=== PATIENT | male | born 1950 | race Caucasian/White ===

== ENCOUNTER 2017-06-07 14:02 | Observation (INO) ==
[2017-06-07] MEDS ORDERED: Ondansetron 4 MG/2 ML VIAL IVP ONE (14:13)
--- NOTE | 2017-06-07 14:17 | Emergency Department Note ---
Disposition Clinical Impression: Dizziness, Unable to ambulate, Nausea, Elevated serum creatinine Proteinuria Qualifiers: Proteinuria type: other Qualified Code(s): R80.8 - Other proteinuria Disposition: Admitted As Inpatient Condition: Good Referrals: NONE,PCP [Primary Care Provider] - Maverick Rosas [Family Provider] - Forms: ED Satisfaction Letter Time of Disposition: 17:47 General Adult HPI - General Time Seen by Provider: 06/07/17 14:09 Source: patient, EMS Limitations: no limitations Nursing Notes Reviewed: Yes Vital Signs Reviewed: Yes - History of Present Illness HPI Narrative: Mr. Grajeda is a very pleasant 66-year-old male with a past ocular history of hypertension, hyperlipidemia, type 2 diabetes, obesity and coronary artery disease who presents to the [facility] emergency department with chief complaint of nausea vomiting. He reports this complaint and present for roughly 2 days and has associated lightheadedness. Prior to the squad call is into the bathroom and felt profoundly weak and lightheaded and sat down on the floor. He is unable to rise at that time. Squad was called and brought into the emergency room for further evaluation. Patient is denying any active chest pain at this time. He did experience some diaphoresis in the bathroom prior to arrival. He denies any palpitations or shortness of breath. He denies any recent sick contacts, fevers, abdominal pain or worsening lower extremity edema. Patient has a history of triple artery bypass back in 2013. No other complaint at this time. Pain Scale: 8 - Related Data Allergies Allergy/AdvReac Type Severity Reaction Status Date / Time No Known Allergies Allergy Verified 06/07/17 14:16 Review of Systems: As Per HPI Past Medical History - Past Medical History Medical history: Reports: diabetes Psychiatric history: Reports: no psych history - Social History Smoking Status: Never smoker Alcohol use: Reports: none Drug use: Reports: none Physical Exam CONSTITUTIONAL: Alert and oriented X3 in no apparent distress HEAD: Normocephalic; atraumatic. EYES: Ocular movements grossly intact Oropharynx: pink/moist, vomit present RESP: NRD without use of accessory musculature, CTA b/l with no wheezes/rales/ rhonchi CARD: Regular rhythm, loud RADHA ABD: grossly normal, soft, non-tender, no guarding/distention/rigidity SKIN: normal appearance, no pallor/diaphoresis,mottling,jaundice,cyanosis EXT: DP/Rad pulses 2+ and symmetrical; no lateralizing edema; no other lesions seen PSYCH: appropriate mood/affect - General Limitations: no limitations General appearance: alert Course Course Narrative: Patient was seen and examined at bedside. Vital signs reviewed and were unremarkable. Blood pressure stable and heart rate in the 90s. Paitent arrived with IVF going. Physical examination demonstrates a comfortable individual lying in bed in no acute distress. There is no reproducible chest pain. Abdominal exam was benign. Patient is only reporting mild nausea at this time. No active chest pain. EKG was performed and revealed and showed evidence of possible lateral ischemia. 12-lead EKG was performed immediately demonstrated ST depression in leads 1, aVL, V3, V4, V5 and V6. This EKG was compared to previous that was performed on 09/17/2012 that shows similar findings but slightly worse depression in leads V3 and V4. We will begin workup with troponin, CBC, BMP, coags, BNP, chest x-ray. IV access was obtained and reviewed by EMS was started on IV fluids. IV Zofran will be administered. Leads were placed posteriorly and did not demonstrate any ST elevation in the lateral leads. Disposition pending. 1715: CBC unremarkable. BMP shows elevated creatinine at 1.44. There is no previous for comparison. Coags are unremarkable. Chest x-ray shows no acute process. Patient's nausea and vomiting completely resolved. Patient continued to deny any chest pain. He did continue to complain of slight dizziness. Patient was able to tolerate by mouth intake but patient did not do well with ambulation. Patient was immediately dizzy upon 1-2 steps and needed assistance back to the bed. Head CT was ordered and showed no acute process. Recommend patient be admitted for observation due to continued dizziness and inability to ambulate. In addition there is proteinuria the presence of elevated creatinine on his urinalysis no need further evaluation. Hospitalist will be paged. 1745: Spoke with hospitalist, Dr. Haider, who is a patient for admission. No further recommendations per hospital team. Vital Signs Temperature 100.1 F H 06/07/17 14:06 Pulse Rate 88 06/07/17 14:06 Respiratory Rate 18 06/07/17 14:06 Blood Pressure 146/66 06/07/17 14:06 O2 Sat by Pulse Oximetry 93 06/07/17 14:06 Temperature 100.1 F H 06/07/17 14:06 Pulse Rate 90 06/07/17 15:14 Respiratory Rate 16 06/07/17 15:14 Blood Pressure 147/72 06/07/17 15:14 O2 Sat by Pulse Oximetry 95 06/07/17 15:14 Oxygen Delivery Oxygen Delivery Room Air Medical Decision Making - Medical Records Medical records reviewed: Yes I reviewed the patient's medical records. - Lab Data Lab results reviewed: Yes I reviewed the patient's lab results. Result diagrams: 06/07/17 14:32 06/07/17 14:32 Lab Results 06/07/17 06/07/17 06/07/17 Range/Units 14:32 14:32 14:32 WBC (4.3-11.1) K/mcL RBC (4.19-5.50) M/mcL Hgb (12.9-16.9) g/dL Hct (37.5-50.1) % MCV (83.0-100.0) fL MCH (28.0-33.3) pg MCHC (31.6-35.5) g/dL RDW (11.5-14.5) % Plt Count (140-400) K/mcL MPV (9.4-12.4) fL Immature Gran % (0-4) % Seg Neutrophils % % Lymphocytes % % Monocytes % % Eosinophils % % Basophils % % Neutrophils # (1.6-8.9) K/mcL Lymphocytes # (0.6-4.6) K/mcL Monocytes # (0.0-1.3) K/mcL Eosinophils # (0.0-0.6) K/mcL Basophils # (0.0-0.2) K/mcL PT 13.9 H (9.4-12.1) Seconds INR 1.3 APTT 28.3 (26.0-36.0) Seconds Sodium (136-145) mEq/L Potassium (3.5-5.1) mEq/L Chloride (98-107) mEq/L Carbon Dioxide (23-29) mEq/L BUN (8-23) mg/dL Creatinine (0.70-1.30) mg/dL Est GFR ( Amer) (> 60) Est GFR (Non-Af Amer) (> 60) BUN/Creatinine Ratio (6-26) Glucose (70-105) mg/dL Calculated Osmolality (280-300) Calcium (8.6-10.3) mg/dL Troponin I (< 0.04) ng/mL B-Natriuretic Peptide 78 (Less than 100) pg/mL Lipase 20 (11-82) Units/L Urine Color (Yellow) Urine Clarity (Clear) Urine pH (5.0-8.0) pH Units Ur Specific [place] (1.010-1.025) Urine Protein (Neg-Trace) mg/dL Urine Glucose (UA) (Normal) mg/dL Urine Ketones (Negative) mg/dL Urine Blood (Negative) Urine Nitrite (Negative) Urine Bilirubin (Negative) Urine Urobilinogen (Normal) mg/dL Ur Leukocyte Esterase (Negative) Urine Microscopic RBC (0-3) per hpf Urine Microscopic WBC (0-3) per hpf Ur Squamous Epith Cells (None-Few) per lpf Urine Bacteria (None-Few) per hpf Hyaline Casts (None-Few) per lpf Ur Culture Indicated? (NO) 06/07/17 06/07/17 06/07/17 Range/Units 14:32 14:32 16:42 WBC 10.8 (4.3-11.1) K/mcL RBC 5.32 (4.19-5.50) M/mcL Hgb 14.4 (12.9-16.9) g/dL Hct 41.5 (37.5-50.1) % MCV 78.0 L (83.0-100.0) fL MCH 27.1 L (28.0-33.3) pg MCHC 34.7 (31.6-35.5) g/dL RDW 15.8 H (11.5-14.5) % Plt Count 137 L (140-400) K/mcL MPV 10.3 (9.4-12.4) fL Immature Gran % 0.5 (0-4) % Seg Neutrophils % 92.1 % Lymphocytes % 3.8 % Monocytes % 3.3 % Eosinophils % 0.1 % Basophils % 0.2 % Neutrophils # 9.9 H (1.6-8.9) K/mcL Lymphocytes # 0.4 L (0.6-4.6) K/mcL Monocytes # 0.4 (0.0-1.3) K/mcL Eosinophils # 0.0 (0.0-0.6) K/mcL Basophils # 0.0 (0.0-0.2) K/mcL PT (9.4-12.1) Seconds INR APTT (26.0-36.0) Seconds Sodium 135 L (136-145) mEq/L Potassium 4.0 (3.5-5.1) mEq/L Chloride 102 (98-107) mEq/L Carbon Dioxide 23 (23-29) mEq/L BUN 24 H (8-23) mg/dL Creatinine 1.44 H (0.70-1.30) mg/dL Est GFR ( Amer) 60 (> 60) Est GFR (Non-Af Amer) 49 L (> 60) BUN/Creatinine Ratio 17 (6-26) Glucose 247 H (70-105) mg/dL Calculated Osmolality 292 (280-300) Calcium 9.0 (8.6-10.3) mg/dL Troponin I 0.03 (< 0.04) ng/mL B-Natriuretic Peptide (Less than 100) pg/mL Lipase (11-82) Units/L Urine Color Dark Yellow (Yellow) Urine Clarity Clear (Clear) Urine pH 5.5 (5.0-8.0) pH Units Ur Specific [place] 1.026 H (1.010-1.025) Urine Protein >=300 H (Neg-Trace) mg/dL Urine Glucose (UA) 250 H (Normal) mg/dL Urine Ketones Trace H (Negative) mg/dL Urine Blood Trace H (Negative) Urine Nitrite Negative (Negative) Urine Bilirubin Small H (Negative) Urine Urobilinogen Normal (Normal) mg/dL Ur Leukocyte Esterase Negative (Negative) Urine Microscopic RBC 5-15 H (0-3) per hpf Urine Microscopic WBC 5-15 H (0-3) per hpf Ur Squamous Epith Cells Many H (None-Few) per lpf Urine Bacteria None Seen (None-Few) per hpf Hyaline Casts None Seen (None-Few) per lpf Ur Culture Indicated? NO (NO) - Radiology Data Radiology results reviewed: Yes I reviewed the patient's radiology results. Chest X-Ray 06/07/17 14:09 IMPRESSION: No evidence of acute cardiopulmonary disease. D/ / Khadar Miles MD / Khadar Miles MD Interpreting Provider: Khadar Miles MD Head CT 06/07/17 16:21 IMPRESSION: No acute intracranial abnormality. D/ / Ethan Bolivar MD / Ethan Bolivar MD Interpreting Provider: Ethan Bolivar MD - EKG Data EKG #1 EKG attestation: Yes I reviewed and interpreted this EKG. EKG results narrative: 06/07/17 1407 Heart rate 97, AR 128, QRS 74, QTC 411 consistent with normal sinus rhythm. There is ST depression in leads 1, AVL, V3, V4, V5, V6. These lines were compared to previous that was performed on 09/17/2012 that shows more progressive depression in leads V3 and V4. EKG #2 EKG attestation: Yes I reviewed and interpreted this EKG. EKG results narrative: 06/07/17 1507: Heart rate 90, AR 140, QRS 84, QTC 376 consistent with normal sinus rhythm. Patient had leads V3, V4, V5 and V6 place as posterior leads. There is no obvious ST or T-wave abnormalities. This EKG was compared to previous that was performed today at 1407.
[2017-06-07 14:45] LABS: Basophils % 0.2 %; Eosinophils % 0.1 %; Hematocrit 41.5 % (37.5-50.1); Hemoglobin 14.4 g/dL (12.9-16.9); Immature Granulocytes % 0.5 % (0-4); Lymphocytes # 0.4 K/mcL (0.6-4.6); Lymphocytes % 3.8 %; Mean Corpuscular HGB Conc 34.7 g/dL (31.6-35.5); Mean Corpuscular Hemoglobin 27.1 pg (28.0-33.3); Mean Platelet Volume 10.3 fL (9.4-12.4); Monocytes # 0.4 K/mcL (0.0-1.3); Monocytes % 3.3 %; Neutrophils # 9.9 K/mcL (1.6-8.9); Platelet Count 137 K/mcL (140-400); Red Blood Count 5.32 M/mcL (4.19-5.50); Red Cell Distribution Width 15.8 % (11.5-14.5); Segmented Neutrophils % 92.1 %
[2017-06-07 14:52] LABS: INR 1.3; Prothrombin Time 13.9 Seconds (9.4-12.1)
[2017-06-07 14:55] LABS: Activated Partial Thrombo Time 28.3 Seconds (26.0-36.0)
[2017-06-07 15:09] LABS: Troponin I 0.03 ng/mL (< 0.04)
[2017-06-07] MEDS ORDERED: 0.9 % Sodium Chloride 1,000 ML IVC ONE ×2 (15:15→16:23)
--- NOTE | 2017-06-07 16:21 | Emergency Department Note ---
Disposition Clinical Impression: Dizziness, Unable to ambulate, Nausea, Elevated serum creatinine, Proteinuria Disposition: Admitted As Inpatient Condition: Good General Adult HPI - General Chief complaint: ED Nausea/Vomiting/Diarrhea Stated complaint: NV/weakness Time Seen by Provider: 06/07/17 14:09 Source: patient, EMS Limitations: no limitations - History of Present Illness Pain Scale: 8 - Related Data Home Medications Medication Instructions Recorded Confirmed Amlodipine Besylate 10 mg PO DAILY 06/07/17 06/07/17 Clopidogrel [Plavix] 75 mg PO DAILY 06/07/17 06/07/17 Escitalopram [Lexapro] 20 mg PO DAILY 06/07/17 06/07/17 Hydrochlorothiazide [Microzide] 12.5 mg PO QAM 06/07/17 06/07/17 Insulin DETEMIR [Levemir] 56 unit SQ QPM 06/07/17 06/07/17 Isosorbide MONOnitrate (24 HR) 60 mg PO DAILY 06/07/17 06/07/17 [Imdur] Lisinopril [Zestril] 20 mg PO BID 06/07/17 06/07/17 Metoprolol [Lopressor] 12.5 mg PO BID 06/07/17 06/07/17 Montelukast [Singulair] 10 mg PO DAILY 06/07/17 06/07/17 Nitroglycerin [Nitrostat] 0.4 mg SL Q5M PRN 06/07/17 06/07/17 Rosuvastatin [Crestor] 20 mg PO HS 06/07/17 06/07/17 Allergies Allergy/AdvReac Type Severity Reaction Status Date / Time No Known Allergies Allergy Verified 06/07/17 14:16 Past Medical History - Past Medical History Medical history: Reports: diabetes Psychiatric history: Reports: no psych history - Social History Smoking Status: Never smoker Alcohol use: Reports: none Drug use: Reports: none Physical Exam - General Limitations: no limitations General appearance: alert Course Vital Signs Temperature 100.1 F H 06/07/17 14:06 Pulse Rate 88 06/07/17 14:06 Respiratory Rate 18 06/07/17 14:06 Blood Pressure 146/66 06/07/17 14:06 O2 Sat by Pulse Oximetry 93 06/07/17 14:06 Temperature 99.7 F H 06/07/17 18:35 Pulse Rate 92 06/07/17 17:51 Respiratory Rate 16 06/07/17 17:51 Blood Pressure 144/79 06/07/17 17:51 O2 Sat by Pulse Oximetry 97 06/07/17 17:51 Oxygen Delivery Oxygen Delivery Room Air Medical Decision Making - Lab Data Result diagrams: 06/07/17 14:32 06/07/17 14:32 Lab Results 06/07/17 06/07/17 06/07/17 Range/Units 14:32 14:32 14:32 WBC (4.3-11.1) K/mcL RBC (4.19-5.50) M/mcL Hgb (12.9-16.9) g/dL Hct (37.5-50.1) % MCV (83.0-100.0) fL MCH (28.0-33.3) pg MCHC (31.6-35.5) g/dL RDW (11.5-14.5) % Plt Count (140-400) K/mcL MPV (9.4-12.4) fL Immature Gran % (0-4) % Seg Neutrophils % % Lymphocytes % % Monocytes % % Eosinophils % % Basophils % % Neutrophils # (1.6-8.9) K/mcL Lymphocytes # (0.6-4.6) K/mcL Monocytes # (0.0-1.3) K/mcL Eosinophils # (0.0-0.6) K/mcL Basophils # (0.0-0.2) K/mcL PT 13.9 H (9.4-12.1) Seconds INR 1.3 APTT 28.3 (26.0-36.0) Seconds Sodium (136-145) mEq/L Potassium (3.5-5.1) mEq/L Chloride (98-107) mEq/L Carbon Dioxide (23-29) mEq/L BUN (8-23) mg/dL Creatinine (0.70-1.30) mg/dL Est GFR ( Amer) (> 60) Est GFR (Non-Af Amer) (> 60) BUN/Creatinine Ratio (6-26) Glucose (70-105) mg/dL Calculated Osmolality (280-300) Calcium (8.6-10.3) mg/dL Troponin I (< 0.04) ng/mL B-Natriuretic Peptide 78 (Less than 100) pg/mL Lipase 20 (11-82) Units/L Urine Color (Yellow) Urine Clarity (Clear) Urine pH (5.0-8.0) pH Units Ur Specific [place] (1.010-1.025) Urine Protein (Neg-Trace) mg/dL Urine Glucose (UA) (Normal) mg/dL Urine Ketones (Negative) mg/dL Urine Blood (Negative) Urine Nitrite (Negative) Urine Bilirubin (Negative) Urine Urobilinogen (Normal) mg/dL Ur Leukocyte Esterase (Negative) Urine Microscopic RBC (0-3) per hpf Urine Microscopic WBC (0-3) per hpf Ur Squamous Epith Cells (None-Few) per lpf Urine Bacteria (None-Few) per hpf Hyaline Casts (None-Few) per lpf Ur Culture Indicated? (NO) 06/07/17 06/07/17 06/07/17 Range/Units 14:32 14:32 16:42 WBC 10.8 (4.3-11.1) K/mcL RBC 5.32 (4.19-5.50) M/mcL Hgb 14.4 (12.9-16.9) g/dL Hct 41.5 (37.5-50.1) % MCV 78.0 L (83.0-100.0) fL MCH 27.1 L (28.0-33.3) pg MCHC 34.7 (31.6-35.5) g/dL RDW 15.8 H (11.5-14.5) % Plt Count 137 L (140-400) K/mcL MPV 10.3 (9.4-12.4) fL Immature Gran % 0.5 (0-4) % Seg Neutrophils % 92.1 % Lymphocytes % 3.8 % Monocytes % 3.3 % Eosinophils % 0.1 % Basophils % 0.2 % Neutrophils # 9.9 H (1.6-8.9) K/mcL Lymphocytes # 0.4 L (0.6-4.6) K/mcL Monocytes # 0.4 (0.0-1.3) K/mcL Eosinophils # 0.0 (0.0-0.6) K/mcL Basophils # 0.0 (0.0-0.2) K/mcL PT (9.4-12.1) Seconds INR APTT (26.0-36.0) Seconds Sodium 135 L (136-145) mEq/L Potassium 4.0 (3.5-5.1) mEq/L Chloride 102 (98-107) mEq/L Carbon Dioxide 23 (23-29) mEq/L BUN 24 H (8-23) mg/dL Creatinine 1.44 H (0.70-1.30) mg/dL Est GFR ( Amer) 60 (> 60) Est GFR (Non-Af Amer) 49 L (> 60) BUN/Creatinine Ratio 17 (6-26) Glucose 247 H (70-105) mg/dL Calculated Osmolality 292 (280-300) Calcium 9.0 (8.6-10.3) mg/dL Troponin I 0.03 (< 0.04) ng/mL B-Natriuretic Peptide (Less than 100) pg/mL Lipase (11-82) Units/L Urine Color Dark Yellow (Yellow) Urine Clarity Clear (Clear) Urine pH 5.5 (5.0-8.0) pH Units Ur Specific [place] 1.026 H (1.010-1.025) Urine Protein >=300 H (Neg-Trace) mg/dL Urine Glucose (UA) 250 H (Normal) mg/dL Urine Ketones Trace H (Negative) mg/dL Urine Blood Trace H (Negative) Urine Nitrite Negative (Negative) Urine Bilirubin Small H (Negative) Urine Urobilinogen Normal (Normal) mg/dL Ur Leukocyte Esterase Negative (Negative) Urine Microscopic RBC 5-15 H (0-3) per hpf Urine Microscopic WBC 5-15 H (0-3) per hpf Ur Squamous Epith Cells Many H (None-Few) per lpf Urine Bacteria None Seen (None-Few) per hpf Hyaline Casts None Seen (None-Few) per lpf Ur Culture Indicated? NO (NO) Attestation Statement - Attestation Attestation: I examined this patient and my medical decision-making was reviewed with the Resident Physician. I agree with the documented findings, disposition and treatment plan as described except to the extent set forth below. Patient to the ED with nausea vomiting. Dizzy and unable to walk. He called 911 because he could not get up and walk. Started with dizziness and the vomiting followed. No history of the same. On exam he is in no acute distress. Lungs clear abdomen soft. Plan. Patient's labs unremarkable. He was able to tolerate by mouth after some nausea meds. He was still unable to ambulate secondary to the dizziness. He still ataxic. We checked a head CT is unremarkable. He is admitted for further workup for his dizziness including possible MRI.
[2017-06-07 16:51] LABS: Bilirubin,Urine Small (Negative); Blood,Urine Trace (Negative); Clarity,Urine Clear (Clear); Color,Urine Dark Yellow (Yellow); Glucose,Urine (UA) 250 mg/dL (Normal); Ketones,Urine Trace mg/dL (Negative); Leukocyte Esterase,Urine Negative (Negative); Nitrite,Urine Negative (Negative); PH,Urine 5.5 pH Units (5.0-8.0); Protein,Urine >=300 mg/dL (Neg-Trace); Specific Gravity,Urine 1.026 (1.010-1.025); Urobilinogen,Urine Normal (Normal)
[2017-06-07 16:54] LABS: Bacteria,Urine None Seen per hpf (None-Few); Hyaline Casts,Urine None Seen per lpf (None-Few); Squamous Epithelial Cell,Urine Many per lpf (None-Few)
--- NOTE | 2017-06-07 19:35 | Internal Med History&Physical ---
Date of Encounter: 06/07/17 Time of Encounter: 19:25 Internal Medicine - H&P: HPI History of present illness: Mr. Grajeda is a 66 year old male who presents with nausea, vomiting, and dizziness for 2-3 days. He indicated that he had been traveling back and forth from [place] due to a recent move here. He stated that he would drive non- stop for 7 hours without drinking alot of water to avoid stopping. Once his travels ended on Tuesday, is when he began to feel ill. He denied chest pain, however indicated that he was having body aches, with intermittent hot and cold spells that were so severe that he was not able to ambulate. A CT scan was completed that indicated no hemorrhage. Trop was <0.03. Patient has history of CAD with three vessel bypass in 2013. He takes plavix daily. Neuro check was completed with no focal deficits seen. Patient is alert and oriented x3.Patient indicated that he has hx of hypertension and DM. The blood glucose is 247, and his bp is 144/79. Past Med Surg Social Fam HX - Past Medical History Medical history: coronary artery disease, diabetes, hyperlipidemia, hypertension Psychiatric history: no psych history - Social History Smoking Status: Never smoker Alcohol use: none Drug use: none Internal Medicine - H&P: Meds Amlodipine Besylate 10 mg PO DAILY 06/07/17 [History] Clopidogrel [Plavix] 75 mg PO DAILY 06/07/17 [History] Escitalopram [Lexapro] 20 mg PO DAILY 06/07/17 [History] Hydrochlorothiazide [Microzide] 12.5 mg PO QAM 06/07/17 [History] Insulin DETEMIR [Levemir] 56 unit SQ QPM 06/07/17 [History] Isosorbide MONOnitrate (24 HR) [Imdur] 60 mg PO DAILY 06/07/17 [History] Lisinopril [Zestril] 20 mg PO BID 06/07/17 [History] Metoprolol [Lopressor] 12.5 mg PO BID 06/07/17 [History] Montelukast [Singulair] 10 mg PO DAILY 06/07/17 [History] Nitroglycerin [Nitrostat] 0.4 mg SL Q5M PRN 06/07/17 [History] Rosuvastatin [Crestor] 20 mg PO HS 06/07/17 [History] 3 Allergy/AdvReac Type Severity Reaction Status Date / Time No Known Allergies Allergy Verified 06/07/17 14:16 All Systems PM: A 10-system review of systems was performed and is negative for pertinent findings except as documented above in the HPI. - Constitutional Constitutional: chills, fever(s), malaise, weakness - EENT Nose, mouth and throat: no nasal congestion, no nasal discharge - Cardiovascular Cardiovascular ROS IM: lightheadedness, no chest pain, no dyspnea - Respiratory Respiratory: no cough, no chest congestion - Gastrointestinal Gastrointestinal: nausea, vomiting - Musculoskeletal Musculoskeletal ROS IM: muscle weakness - Allergic/Immunologic Allergic/Immunologic: no seasonal rhinorrhea - Constitutional Vitals: Temp Pulse Resp BP Pulse Ox 99.3 F 86 16 130/71 95 06/07/17 19:16 06/07/17 19:16 06/07/17 19:16 06/07/17 19:16 06/07/17 19:16 General appearance: Present: A&O X 3, answers questions appropriately - Head Head exam: Present: atraumatic, normocephalic - Eye Eye exam: Present: PERRL, conjuntiva pink, sclera anicteric Pupils: Present: PERRL - Neck Neck exam general surgery: Present: supple, trachea midline. Absent: lymphadenopathy - Respiratory Respiratory exam: Present: CTAB. Absent: accessory muscle use, rales, rhonchi, wheezes - Cardiovascular Cardiovascular exam: Present: RRR, +S1, +S2. Absent: diastolic murmur, gallop, rubs, systolic murmur - GI/Abdominal GI/Abdominal exam: Present: normal bowel sounds, soft, no peritoneal signs. Absent: distended, tenderness - Extremities Exam Extremities exam: Present: warm, radial pulses palpable and symmetrical. Absent : calf tenderness, cyanotic, pedal edema - Neurological Exam Neurological exam: Present: CN II-XII intact, oriented X3, no focal deficits. Absent: pronater drift, facial droop, speech deficit - Skin Skin exam: Present: dry, intact Internal Med - H&P Results - Labs CBC & Chem 7: 06/07/17 14:32 06/07/17 14:32 - VTE Deep Vein Thrombosis/Pulmonary Embolism Present on Admission: Yes - Assessment and plan (1) Dizziness Current Visit: Yes Status: Acute Assessment and plan: Patient arrived with c/o dizziness, NA was 135, and creat was 1.44, bun was 24. The patient indicated that he had not been drinking alot of water due to persistent nausea and vomiting for the past 2-3 days . The patient is likely dehydrated. Will continue IVF 0.9% continuous. (2) Elevated serum creatinine Current Visit: Yes Status: Acute Assessment and plan: No history of CKD, likely related to poor hydration secondary to N/V. Will continue IVF. (3) Nausea Current Visit: Yes Status: Acute Assessment and plan: The nausea was relieved with a dose of zofran in the ED. The patient currently denies n/v. Will add zofran prn if any further reports (4) Proteinuria Current Visit: Yes Status: Acute Assessment and plan: Etiology of the proteinuria is unknown, however may likely be caused by the patient poor fluid intake. Qualifiers: Proteinuria type: unspecified Qualified Code(s): R80.9 - Proteinuria, unspecified (5) Unable to ambulate Current Visit: Yes Status: Acute Assessment and plan: Generalized weakness reported for the past 2-3 days, since onset of N/V. The weakness was likely secondary to the nausea and vomiting. The patient indicated that the weakness has slightly improved since his arrival to the hospital. PT/ OT consult ordered for evaluation and treatment - Time Spent With Patient Total time spent is greater than 50% in coordination of care (as documented) at patient's floor/unit and/or counseling patient: 25 - 35 minutes
[2017-06-07] MEDS: 0.9 % Sodium Chloride 1,000 ML IVC SCH ×2 (19:38→21:56)
[2017-06-07] MEDS ORDERED: Dextrose Gel 15 GM/37.5 ML TUBE PO PRN ×2 (20:38)
[2017-06-07] MEDS ORDERED: *HR* Dextrose 50 % in Water (Syg) 50 ML SYRINGE IVP PRN (20:38)
[2017-06-07] MEDS ORDERED: D5% in Water 1,000 ML IVC PRN (20:38)
[2017-06-07] MEDS: Insulin LISPRO 300 UNITS/3 ML VIAL SQ SCH (22:21)
[2017-06-07] MEDS: Insulin DETEMIR 100 UNIT/ML X5UNITS SQ SCH (22:22)
[2017-06-07 23:30] LABS: Adenovirus Not Detected (Not Detect); Bordetella Pertussis Not Detected (Not Detect); Chlamydophila pneumoniae Not Detected (Not Detect); Coronavirus 229E Not Detected (Not Detect); Coronavirus HKU1 Not Detected (Not Detect); Coronavirus NL63 Not Detected (Not Detect); Coronavirus OC43 Not Detected (Not Detect); Human Metapneumovirus Not Detected (Not Detect); Human Rhinovirus/Enterovirus Not Detected (Not Detect); Influenza A Subtype 2009 H1 Not Detected (Not Detect); Influenza A Untypeable Not Detected (Not Detect); Influenza B Not Detected (Not Detect); Mycoplasma pneumoniae Not Detected (Not Detect); Parainfluenza Virus 1 Not Detected (Not Detect); Parainfluenza Virus 2 Not Detected (Not Detect); Parainfluenza Virus 3 Not Detected (Not Detect); Parainfluenza Virus 4 Not Detected (Not Detect); Respiratory Syncytial Virus Not Detected (Not Detect)
[2017-06-08] MEDS ORDERED: Ondansetron 4 MG/2 ML VIAL IVP PRN (00:52)
[2017-06-08] MEDS: Acetaminophen 325 MG TABLET PO PRN ×2 (01:07→23:40)
[2017-06-08 02:04] LABS: Basophils % 0.2 %; Hematocrit 39.7 % (37.5-50.1); Hemoglobin 13.8 g/dL (12.9-16.9); Immature Granulocytes % 0.6 % (0-4); Lymphocytes # 0.7 K/mcL (0.6-4.6); Lymphocytes % 5.7 %; Mean Corpuscular HGB Conc 34.8 g/dL (31.6-35.5); Mean Corpuscular Hemoglobin 27.3 pg (28.0-33.3); Mean Corpuscular Volume 78.6 fL (83.0-100.0); Mean Platelet Volume 10.5 fL (9.4-12.4); Monocytes # 0.8 K/mcL (0.0-1.3); Monocytes % 6.3 %; Neutrophils # 10.9 K/mcL (1.6-8.9); Platelet Count 118 K/mcL (140-400); Red Blood Count 5.05 M/mcL (4.19-5.50); Red Cell Distribution Width 15.7 % (11.5-14.5); Segmented Neutrophils % 87.2 %
[2017-06-08 02:25] LABS: Calcium 8.5 mg/dL (8.6-10.3); Potassium 4.1 mEq/L (3.5-5.1)
[2017-06-08 02:33] LABS: Troponin I 0.07 ng/mL (< 0.04)
[2017-06-08] MEDS ORDERED: *HR* Enoxaparin 30 MG/0.3 ML SYRINGE SQ SCH (06:00)
[2017-06-08] MEDS: 0.9 % Sodium Chloride 1,000 ML IVC SCH ×3 (08:25→23:54)
[2017-06-08] MEDS: Insulin LISPRO 300 UNITS/3 ML VIAL SQ SCH ×4 (08:28→21:32)
--- NOTE | 2017-06-08 08:46 | Electrocardiograph Report ---
[facility] Test Date: 2017-06-07 Pat Name: Victor Hugo Grajeda Department: 103 Room: 3B47 Gender: M [employer]: DUANE : 1950 Requested By: Ward Zamorano Order Number: [id number] Reading MD: Don Hernandez Measurements Intervals [place] Rate: 90 P: 62 AK: 140 QRS: 24 QRSD: 84 T: 130 QT: 328 QTc: 376 Interpretive Statements SINUS RHYTHM ST DEVIATION AND MODERATE T-WAVE ABNORMALITY, CONSIDER LATERAL ISCHEMIA Electronically Signed On 06-08-2017 8:44:50 EDT by Don Hernandez
[2017-06-08 11:40] LABS: Bilirubin,Urine Negative (Negative); Blood,Urine Large (Negative); Clarity,Urine Clear (Clear); Color,Urine Yellow (Yellow); Glucose,Urine (UA) >=1000 mg/dL (Normal); Ketones,Urine Negative (Negative); Leukocyte Esterase,Urine Negative (Negative); Nitrite,Urine Negative (Negative); Protein,Urine 100 mg/dL (Neg-Trace); Specific Gravity,Urine 1.025 (1.010-1.025); Urobilinogen,Urine Normal (Normal)
[2017-06-08 11:42] LABS: Bacteria,Urine None Seen per hpf (None-Few); Hyaline Casts,Urine None Seen per lpf (None-Few); Squamous Epithelial Cell,Urine Many per lpf (None-Few); WBC,Urine 0-3 per hpf (0-3)
[2017-06-08 12:24] LABS: Adenovirus Not Detected (Not Detect); Bordetella Pertussis Not Detected (Not Detect); Chlamydophila pneumoniae Not Detected (Not Detect); Coronavirus 229E Not Detected (Not Detect); Coronavirus HKU1 Not Detected (Not Detect); Coronavirus NL63 Not Detected (Not Detect); Coronavirus OC43 Not Detected (Not Detect); Human Metapneumovirus Not Detected (Not Detect); Human Rhinovirus/Enterovirus Not Detected (Not Detect); Influenza A Subtype 2009 H1 Not Detected (Not Detect); Influenza A Untypeable Not Detected (Not Detect); Influenza B Not Detected (Not Detect); Mycoplasma pneumoniae Not Detected (Not Detect); Parainfluenza Virus 1 Not Detected (Not Detect); Parainfluenza Virus 2 Not Detected (Not Detect); Parainfluenza Virus 3 Not Detected (Not Detect); Parainfluenza Virus 4 Not Detected (Not Detect); Respiratory Syncytial Virus Not Detected (Not Detect)
--- NOTE | 2017-06-08 13:53 | Internal Med Progress Note ---
Date of Encounter: 06/08/17 Time of Encounter: 13:49 - Assessment and plan (1) Gastroenteritis Current Visit: Yes Status: Acute Assessment and plan: Suspected with nausea, vomiting and now loose stool. Symptoms improving but still having loose stool. Continue IV fluids, check GI panel. (2) Dizziness Current Visit: Yes Status: Acute Assessment and plan: Dizziness in the setting of nausea vomiting and dehydration. Symptoms now resolved. Continue IV fluids/supportive care. Orthostatic BP (3) CLAIRE (acute kidney injury) Current Visit: Yes Status: Acute Assessment and plan: Cr 1.6; no known history of kidney disease. Suspect prerenal with excessive GI losses with nausea/vomiting. Cont IV fluids. Avoid nephrotoxic agents as possible. Monitor repeat renal function (4) CAD (coronary artery disease) Current Visit: Yes Status: Acute Assessment and plan: Significant cardiac history including prior [place], multiple stents and CABG 2013 at [facility]. Underwent Lexiscan Cardiolite stress test 03/2017 with his primary insurance follow up representative in [place] that was reported as mildly abnormal showing a limited area of inferior wall ischemia. 03/2017 TTE with EF 55%, normal systolic function and bioprosthetic aortic valve well seated and appears to open well. Troponin peaked at 0.07 and trended down. No acute ST changes on EKG. Denied chest pain. Suspect bump in troponin secondary to AK I/demand ischemia however with his significant cardiac history and reported abnormal stress test will consult cardiology for further recommendations. Cont home Plavix, BB, statin. Qualifiers: Coronary Disease-Associated Artery/Lesion type: bypass graft, autologous artery Associated angina: without angina Qualified Code(s): I25.810 - Atherosclerosis of coronary artery bypass graft(s) without angina pectoris (5) Aortic valve replaced Current Visit: Yes Status: Acute Assessment and plan: Aortic valve replacement with [facility] trifecta tissue valve 01/2014 at [facility]. 2017 TTE shows bioprosthetic valve well-positioned and functioning well. (6) DVT prophylaxis Current Visit: Yes Status: Acute Assessment and plan: heparin - Time Spent With Patient Total time spent is greater than 50% in coordination of care (as documented) at patient's floor/unit and/or counseling patient: - Subjective Interval history: Seen and examined at bedside. Patient is new to me, information obtained from chart review and patient report. Having some loose stool that started overnight but overall improved. No further nausea or vomiting. No chest pain or shortness of breath. - Constitutional Vitals: Temp Pulse Resp BP Pulse Ox 98.9 F 71 16 151/71 95 06/08/17 11:32 06/08/17 11:32 06/08/17 11:32 06/08/17 11:32 06/08/17 11:32 General appearance: Present: A&O X 3, answers questions appropriately - Head Head exam: Present: atraumatic, normocephalic - Eye Eye exam: Present: PERRL, conjuntiva pink, sclera anicteric Pupils: Present: PERRL - Neck Neck exam general surgery: Present: supple, trachea midline. Absent: lymphadenopathy - Respiratory Respiratory exam: Present: CTAB. Absent: accessory muscle use, rales, rhonchi, wheezes - Cardiovascular Cardiovascular exam: Present: RRR, +S1, +S2, systolic murmur. Absent: diastolic murmur, gallop, rubs - GI/Abdominal GI/Abdominal exam: Present: normal bowel sounds, soft, no peritoneal signs. Absent: distended, tenderness - Extremities Exam Extremities exam: Present: warm, radial pulses palpable and symmetrical. Absent : calf tenderness, cyanotic, pedal edema - Neurological Exam Neurological exam: Present: CN II-XII intact, oriented X3, no focal deficits. Absent: pronater drift, facial droop, speech deficit - Skin Skin exam: Present: dry, intact Internal Medicine: Result - Labs CBC & Chem 7: 06/08/17 01:43 06/08/17 01:43 Labs: Short CBC 06/08/17 Range/Units 01:43 WBC 12.5 H (4.3-11.1) K/mcL Hgb 13.8 (12.9-16.9) g/dL Hct 39.7 (37.5-50.1) % Plt Count 118 L (140-400) K/mcL Neutrophils # 10.9 H (1.6-8.9) K/mcL BMP 06/08/17 01:43 Sodium 135 L Potassium 4.1 Chloride 104 Carbon Dioxide 22 L BUN 23 Creatinine 1.52 H Glucose 216 H Calcium 8.5 L Cardiac Enzymes 06/07/17 06/08/17 06/08/17 Range/Units 19:45 01:43 08:32 Troponin I 0.03 0.07 H* 0.05 H* (< 0.04) ng/mL Urine 06/08/17 Range/Units 11:00 Urine Color Yellow (Yellow) Urine Clarity Clear (Clear) Urine pH 6.0 (5.0-8.0) pH Units Ur Specific [place] 1.025 (1.010-1.025) Urine Protein 100 H (Neg-Trace) mg/dL Urine Glucose (UA) >=1000 H (Normal) mg/dL - ABG Interpretation ABG results: PT/INR, D-dimer PT 13.9 Seconds (9.4-12.1) H 06/07/17 14:32 - VTE Deep Vein Thrombosis/Pulmonary Embolism Present on Admission: Yes Consult Discharge Plan - Plan Referrals: NONE,PCP [Primary Care Provider] - Maverick Rosas [Family Provider] -
--- NOTE | 2017-06-08 15:49 | Electrocardiograph Report ---
[address] [place] [address] Test Date: 2017-06-07 Pat Name: Victor Hugo Grajeda Department: 102 Room: 3B47 Gender: M Funding Coordinator: : 1950 Requested By: Shara Haider Order Number: [id number] Reading MD: Emelina Carrillo Measurements Intervals [place] Rate: 97 P: 73 CT: 128 QRS: 31 QRSD: 74 T: 127 QT: 356 QTc: 411 Interpretive Statements SINUS RHYTHM ST DEVIATION AND MODERATE T-WAVE ABNORMALITY, CONSIDER LATERAL ISCHEMIA [-0.1+ mV T WAVE IN I/aVL/V5/V6] Electronically Signed On 06-08-2017 15:47:21 EDT by Emelina Carrillo
[2017-06-08] MEDS: *HR* Heparin 5,000 UNIT/ML VIAL SQ SCH ×2 (16:59→21:29)
[2017-06-08] MEDS: Insulin DETEMIR 100 UNIT/ML X5UNITS SQ SCH (17:03)
[2017-06-09] MEDS: *HR* Heparin 5,000 UNIT/ML VIAL SQ SCH ×3 (05:53→20:55)
[2017-06-09] MEDS: 0.9 % Sodium Chloride 1,000 ML IVC SCH ×2 (05:55→13:29)
[2017-06-09 06:41] LABS: Eosinophils % 0.5 %; Hemoglobin 12.6 g/dL (12.9-16.9); Immature Granulocytes % 0.3 % (0-4); Red Cell Distribution Width 15.3 % (11.5-14.5)
[2017-06-09 06:43] LABS: Basophils % 0.3 %; Hematocrit 36.2 % (37.5-50.1); Immature Platelets 6.7 % (1.1-6.1); Lymphocytes # 0.9 K/mcL (0.6-4.6); Lymphocytes % 14.3 %; Mean Corpuscular HGB Conc 34.8 g/dL (31.6-35.5); Mean Corpuscular Hemoglobin 27.1 pg (28.0-33.3); Mean Corpuscular Volume 77.8 fL (83.0-100.0); Mean Platelet Volume 10.6 fL (9.4-12.4); Monocytes # 0.7 K/mcL (0.0-1.3); Monocytes % 11.7 %; Red Blood Count 4.65 M/mcL (4.19-5.50); Segmented Neutrophils % 72.9 %
[2017-06-09 06:45] LABS: Neutrophils # 4.5 K/mcL (1.6-8.9); Platelet Count 91 K/mcL (140-400)
[2017-06-09 07:03] LABS: BUN/Creatinine Ratio 16 (6-26); Blood Urea Nitrogen 16 mg/dL (8-23); Calcium 8.7 mg/dL (8.6-10.3); Carbon Dioxide 23 mEq/L (23-29); Chloride 108 mEq/L (98-107); Glucose 62 mg/dL (70-105); Osmolality,Calculated 283 (280-300); Potassium 3.4 mEq/L (3.5-5.1); Sodium 137 mEq/L (136-145); eGFR For African Americans > 60 (> 60); eGFR For Non-African Americans > 60 (> 60)
[2017-06-09] MEDS: Insulin LISPRO 300 UNITS/3 ML VIAL SQ SCH ×4 (07:17→20:53)
[2017-06-09] MEDS: Lisinopril 20 MG TABLET PO SCH ×2 (11:21→20:53)
[2017-06-09] MEDS: Isosorbide MONOnitrate (24 HR) 60 MG TAB.ER.24H PO SCH (11:22)
[2017-06-09] MEDS: amLODIPine 5 MG TABLET PO SCH (11:22)
[2017-06-09] MEDS: hydroCHLOROthiazide 25 MG TABLET PO SCH (11:22)
--- NOTE | 2017-06-09 11:37 | Cardiology Consult Note ---
<Ken Kunz - Last Filed: 06/09/17 11:30> Date of Encounter: 06/09/17 Time of Encounter: 11:30 Assessment and Plan (1) Elevated troponin Current Visit: Yes Status: Acute Troponins 0.03, 0.03, 0.07, 0.05--borderline in setting of gastroenteritis--n/v , dizziness. Suspect demand ischemia, nondiagnostic for ACS. EKG with lateral ischemia, but similar to previous EKGs. No significant changes. Denies chest pain or dyspnea. Stress test 03/2017 at outside facility reviewed--showed reversible defect found in inferior wall--small sized, severe intensity, consistent with relatively small area of mid inferior wall ischemia, intermediate risk study. TTE 03/2017 EF 55-60%, moderate cLVH, bioprosthetic AV is well-seated and appears to open well. Gradient is normal for prosthetic aortic valve. Given that pt's presenting symptoms were noncardiac and he denies chest pain or dyspnea, will likely recommend continued medical management of his abnormal stress test as above. Check limited TTE to re-evaluate EF. If EF is preserved, anticipate sign off with outpt follow-up. (2) Abnormal stress test Current Visit: Yes Status: Acute Stress test 03/2017 at outside facility reviewed--showed reversible defect found in inferior wall--small sized, severe intensity, consistent with relatively small area of mid inferior wall ischemia, intermediate risk study. As above, given that pt's presenting symptoms were noncardiac--viral illness, and he denies chest pain or dyspnea, will likely recommend continued medical management of his abnormal stress test with close outpt follow-up. Continue ASA, Plavix, Statin, BB, nitrates. (3) History of aortic valve replacement Current Visit: Yes Status: Acute TTE 03/2017 at outside facility reviewed--bioprosthetic AV is well-seated and appears to open well. Gradient is normal for prosthetic aortic valve. (4) CAD (coronary artery disease) Current Visit: Yes Status: Acute Hx of multiple PCIs and then CABG in 2013. Intermediate risk abnormal stress test detailed above 03/2017. Currently denies chest pain or dyspnea. Continue ASA, Plavix, Statin, BB, Nitrates. Qualifiers: Coronary Disease-Associated Artery/Lesion type: bypass graft, autologous artery Associated angina: without angina Qualified Code(s): I25.810 - Atherosclerosis of coronary artery bypass graft(s) without angina pectoris Discussion w patient/family: The assessment and plan as outlined above was discussed with the patient and/or family members who expressed understanding and agreement. All questions were answered. Thank you for involving us in the care of your patient. Please call with any questions. I will discuss all the above with Dr. Carrillo and make changes as necessary. History of Present Illness Consult date: 06/09/17 Requesting physician: Jo-Ann Little Consult reason: elevated troponin, abnormal stress test Chief complaint: n/v, dizziness History of present illness: Mr. Grajeda is a 66 year old male with PMH of HTN, HLD, DMII, CAD with hx of multiple PCI, CABG and aortic valve replacement in 2013 that presented to ED with chief complaints of nausea, vomiting, and dizziness for 2-3 days, diagnosed with gastroenteritis. Symptoms now improved. Denies chest pain or dyspnea. Troponins 0.03, 0.03, 0.07, 0.05. Pt reported stress test and echo earlier this year in [place]. Records were obtained. Stress test 03/2017 showed reversible defect found in inferior wall--small sized, severe intensity, consistent with relatively small area of mid inferior wall ischemia, intermediate risk study. TTE 03/2017 EF 55-60%, moderate cLVH, bioprosthetic AV is well-seated and appears to open well. Gradient is normal for prosthetic aortic valve. Of note, pt states presenting symptoms were not similar to prior anginal equivalent. Cardiology consulted for further recs. Past Med Surg Social Fam HX - Past Medical History Medical history: coronary artery disease, diabetes, hyperlipidemia, hypertension , valvular heart disease Psychiatric history: no psych history - Past Surgical History Surgical History: angioplasty/stent, coronary bypass (CABG), heart valve replacement - Social History Smoking Status: Never smoker Alcohol use: none Drug use: none - Family History Father Adopted: [place]: [employer] Family Member Ethnicity: Non- Living Status: Age at : 70 Cause of : BLACK LUNG Hx Family Cardiac Disorders: No Hx Family Respiratory Disorders: Yes Hx Family Cancer: No Hx Family GI Disorders: No Hx Family Genitourinary Disorders: No Hx Family Endocrine Disorder: No Hx Family Musculoskeletal Disorders: No Hx Family Neuromuscular Disorders: No Hx Family Neurologic Disorders: No Hx Family HEENT Disorders: No Hx Family Autoimmune Disorders: No Hx Family Reproductive Disorders: No Hx Family Psychosocial Disorders: No Hx Family Medical Disorders: No Medications and Allergies Amlodipine Besylate 10 mg PO DAILY 06/07/17 [History] Clopidogrel [Plavix] 75 mg PO DAILY 06/07/17 [History] Escitalopram [Lexapro] 20 mg PO DAILY 06/07/17 [History] Hydrochlorothiazide [Microzide] 12.5 mg PO QAM 06/07/17 [History] Insulin DETEMIR [Levemir] 56 unit SQ QPM 06/07/17 [History] Isosorbide MONOnitrate (24 HR) [Imdur] 60 mg PO DAILY 06/07/17 [History] Lisinopril [Zestril] 20 mg PO BID 06/07/17 [History] Metoprolol [Lopressor] 12.5 mg PO BID 06/07/17 [History] Montelukast [Singulair] 10 mg PO DAILY 06/07/17 [History] Nitroglycerin [Nitrostat] 0.4 mg SL Q5M PRN 06/07/17 [History] Rosuvastatin [Crestor] 20 mg PO HS 06/07/17 [History] 3 Allergy/AdvReac Type Severity Reaction Status Date / Time No Known Allergies Allergy Verified 06/07/17 14:16 All Systems Review: The remainder of the systems were reviewed and are negative - Cardiovascular Cardiovascular: as per HPI, lightheadedness - Gastrointestinal Gastrointestinal: nausea - Neurological Neurological: dizziness Physical Examination Vital Signs, Last 4 Hours Temp Pulse Resp BP Pulse Ox 06/09/17 11:19 98.5 F 67 18 171/78 95 Vital Signs Temp Pulse Resp BP Pulse Ox 06/09/17 11:19 98.5 F 67 18 171/78 95 06/09/17 06:40 97.9 F 64 16 172/80 98 06/09/17 03:30 97.8 F 57 16 164/80 94 06/08/17 23:20 100.3 F H 73 16 163/74 96 06/08/17 18:18 98.6 F 77 16 188/74 96 06/08/17 14:55 100.6 F H 79 17 173/77 95 Intake and Output 06/08/17 06/09/17 06/09/17 23:59 07:59 15:59 Intake Total 1000 / 1000 1000 / 1000 240 / 240 Balance 1000 / 1000 1000 / 1000 240 / 240 Intake: IV Fluids 1000 / 1000 1000 / 1000 0.9 % Sodium Chloride 1,000 ML 1000 / 1000 1000 / 1000 @ 100 mls/hr IVC .Q10H [place] Rx#: [id number] Oral 0 / 0 240 / 240 Other: Meal Dinner Breakfast Percent of Meal Consumed 100% 100% # Voids 1 Weight 98.9 kg Blood Glucose* 179 93 161 Patient Weight 06/09/17 23:59 Weight 98.9 kg General: Conversant, No Apparent Distress HEENT: Atraumatic, Normocephaly, Mucus Membranes Moist Neck: No JVD, Normal carotid pulses Cardiac: Reg Rate and Rhythm, Normal S1 and S2, No Murmur Lungs: Normal Breath Sounds, No Wheeze, Rales, Rhonchi Neuro: Alert and responsive, No focal deficits noted Abdomen: Soft, Non-Tender Skin: No rashes noted on visualized skin Musculoskeletal: No Chest Wall Tenderness Extremities: No Clubbing, No Cyanosis, No Edema, Normal Pulses Results 06/09/17 06:31 06/09/17 06:31 Lab Results 06/09/17 06/09/17 06:31 06:31 WBC 6.1 D Hgb 12.6 L Hct 36.2 L Plt Count 91 L Sodium 137 Potassium 3.4 L Chloride 108 H Carbon Dioxide 23 BUN 16 Creatinine 0.99 Glucose 62 L Calcium 8.7 Short CBC 06/09/17 Range/Units 06:31 WBC 6.1 D (4.3-11.1) K/mcL Hgb 12.6 L (12.9-16.9) g/dL Hct 36.2 L (37.5-50.1) % Plt Count 91 L (140-400) K/mcL Neutrophils # 4.5 (1.6-8.9) K/mcL BMP 06/09/17 Range/Units 06:31 Sodium 137 (136-145) mEq/L Potassium 3.4 L (3.5-5.1) mEq/L Chloride 108 H (98-107) mEq/L Carbon Dioxide 23 (23-29) mEq/L BUN 16 (8-23) mg/dL Creatinine 0.99 (0.70-1.30) mg/dL Glucose 62 L (70-105) mg/dL Calcium 8.7 (8.6-10.3) mg/dL Urine 06/08/17 Range/Units 11:00 Urine Color Yellow (Yellow) Urine Clarity Clear (Clear) Urine pH 6.0 (5.0-8.0) pH Units Ur Specific [place] 1.025 (1.010-1.025) Urine Protein 100 H (Neg-Trace) mg/dL Urine Glucose (UA) >=1000 H (Normal) mg/dL Active Medications Acetaminophen (Tylenol) 650 mg PO Q6HR PRN PRN Reason: Fever Stop: 12/08/17 00:52 Last Admin: 06/08/17 23:40 Dose: 650 mg Amlodipine Besylate (Norvasc) 10 mg PO DAILY [facility] Stop: 12/09/17 11:01 Last Admin: 06/09/17 11:22 Dose: 10 mg Clopidogrel Bisulfate (Plavix) 75 mg PO DAILY [place] Stop: 12/08/17 09:01 Last Admin: 06/09/17 08:05 Dose: 75 mg Dextrose/Water (Dextrose 50% (Syg)) 25 ml IVP AD PRN PRN Reason: Hypoglycemia Stop: 12/07/17 20:39 Escitalopram Oxalate (Lexapro) 20 mg PO DAILY [place] Stop: 12/08/17 09:01 Last Admin: 06/09/17 08:05 Dose: 20 mg Glucagon (Glucagen) 1 mg IM ONCE PRN PRN Reason: Hypoglycemia Stop: 12/07/17 20:39 Glucose (Gluctose) 15 gm PO ONCE PRN PRN Reason: Hypoglycemia Stop: 12/07/17 20:39 Glucose (Gluctose) 30 gm PO ONCE PRN PRN Reason: Hypoglycemia Stop: 12/07/17 20:39 Heparin Sodium (Porcine) (Heparin) 5,000 unit SQ Q8HCO [facility] Stop: 12/08/17 14:01 Last Admin: 06/09/17 05:53 Dose: 5,000 unit Hydrochlorothiazide (Hydrochlorothiazide) 12.5 mg PO QAM [place] Stop: 12/09/17 11:01 Last Admin: 06/09/17 11:22 Dose: 12.5 mg Sodium Chloride (0.9 % Sodium Chloride) 1,000 mls @ 100 mls/hr IVC .Q10H [place] Stop: 12/07/17 20:31 Last Admin: 06/09/17 05:55 Dose: 100 mls/hr Dextrose (Dextrose 5%) 1,000 mls @ 100 mls/hr IVC .Q10H PRN PRN Reason: HYPOGLYCEMIA Stop: 12/07/17 20:39 Insulin Detemir (Levemir) 55 unit SQ QPM [facility] Stop: 12/07/17 20:46 Last Admin: 06/08/17 17:03 Dose: 55 unit Insulin Human Lispro (Humalog) 0 units SQ TIDAC [place] PRN Reason: Protocol Stop: 12/08/17 07:31 Last Admin: 06/09/17 11:23 Dose: 2 units Insulin Human Lispro (Humalog) 0 units SQ HS [facility] PRN Reason: Protocol Stop: 12/07/17 21:01 Last Admin: 06/08/17 21:32 Dose: 5 units Isosorbide Mononitrate (Imdur) 60 mg PO DAILY [facility] Stop: 12/09/17 11:01 Last Admin: 06/09/17 11:22 Dose: 60 mg Lisinopril (Zestril) 20 mg PO BID [place] PRN Reason: Protocol Stop: 12/09/17 11:01 Last Admin: 06/09/17 11:21 Dose: 20 mg Metoprolol Tartrate (Lopressor) 12.5 mg PO BID [facility] Stop: 12/07/17 21:01 Last Admin: 06/09/17 08:06 Dose: 12.5 mg Montelukast Sodium (Singulair) 10 mg PO DAILY [facility] Stop: 12/08/17 09:01 Last Admin: 06/09/17 08:06 Dose: 10 mg Ondansetron HCl (Zofran) 4 mg IVP Q6HR PRN; Protocol PRN Reason: Nausea Stop: 12/08/17 00:53 Last Admin: 06/08/17 01:18 Dose: 4 mg Rosuvastatin Calcium (Crestor) 20 mg PO HS [facility] Stop: 12/07/17 21:01 Last Admin: 06/08/17 21:30 Dose: 20 mg - Imaging and Cardiology Stress Test: report reviewed Echo: report reviewed - EKG Interpretation EKG results cardiology: personally reviewed (SR, lateral ischemia) Consult Discharge Plan - Plan Referrals: Pasquale Vizcarra [Partnered Physician] - 06/17/17 11:00 am NONE,PCP [Primary Care Provider] - Maverick Rosas [Family Provider] - <Emelina Carrillo - Last Filed: 06/09/17 13:10> Date of Encounter: 06/09/17 - Attending Attestation I examined this patient and my medical decision-making was reviewed with the TRANSIT VEHICLE INSPECTOR. I agree with the documented findings, disposition and treatment plan as described. Mr. Grajeda was independently seen and examined. Soft systolic murmur RSB appears consistent with history of AVR. Presents with viral type syndrome. Incidentally discovered to have flat troponin elevation. ECG appears unchanged when compared to ECG from 2013. Agree with Limited echo to help guide plan of care. Recent outpatient stress testing done preoperatively in [place] demonstrated a small sized, severe intensity defect involving the mid inferior wall. Doesn' t appear that intervention was recommended and patient was unaware of findings. He apparently proceeded with surgery that was uneventful. Provided Limited echo returns with unchanged EF, recommend establishing locally with Cardiology for continued care. Patient is in agreement. He denies recent cardiac symptoms. Assessment and Plan Discussion w patient/family: The assessment and plan as outlined above was discussed with the patient and/or family members who expressed understanding and agreement. All questions were answered. Thank you for involving us in the care of your patient. Please call with any questions. History of Present Illness History of present illness: Mr. Grajeda is a 66 year old male All Systems Review: The remainder of the systems were reviewed and are negative Physical Examination Vital Signs, Last 4 Hours Temp Pulse Resp BP Pulse Ox 06/09/17 11:19 98.5 F 67 18 171/78 95 Results 06/09/17 06:31 06/09/17 06:31 Lab Results 06/09/17 06/09/17 06:31 06:31 WBC 6.1 D Hgb 12.6 L Hct 36.2 L Plt Count 91 L Sodium 137 Potassium 3.4 L Chloride 108 H Carbon Dioxide 23 BUN 16 Creatinine 0.99 Glucose 62 L Calcium 8.7
[2017-06-09 12:38] LABS: Adenovirus F 40/41 PCR Not detected (Not detect); Astrovirus PCR Not detected (Not detect); C.difficile Toxin A/B by PCR Not detected (Not detect); Campylobacter by PCR Not detected (Not detect); Cryptosporidium by PCR Not detected (Not detect); Cyclospora cayetanensis PCR Not detected (Not detect); E. coli O157 by PCR Not detected (Not detect); Entamoeba histolytica PCR Not detected (Not detect); Enteroaggregative E.coli(EAEC) Not detected (Not detect); Enteropathogenic E.coli(EPEC) Not detected (Not detect); Enterotoxigenic E.coli (ETEC) Not detected (Not detect); Giardia lamblia PCR Not detected (Not detect); Norovirus GI/GII PCR Not detected (Not detect); Plesiomonas shigelloides PCR Not detected (Not detect); Rotavirus A PCR Not detected (Not detect); Salmonella PCR Not detected (Not detect); Sapovirus PCR Not detected (Not detect); Shig/EnteroinvasiveE coli EIEC Not detected (Not detect); Shigalike tox-prod E coli STEC Not detected (Not detect); Vibrio PCR Not detected (Not detect); Vibrio cholerae PCR Not detected (Not detect); Yersinia enterocolitica PCR Not detected (Not detect)
[2017-06-09] MEDS: Aspirin 81 MG TAB.CHEW PO SCH (13:30)
--- NOTE | 2017-06-09 15:33 | Discharge Summary ---
Orders not resulted at time of discharge: Pending orders 06/09/17 09:37 EV echocardiogram Routine 06/09/17 11:48 EV limited echocardiogram Routine 06/10/17 04:00 BMP [Basic Metabolic Panel] AM 0400 CBC [Complete Blood Count] [HEME] AM 0400 Date of Encounter: 06/09/17 Time of Encounter: 15:31 - Discharge Diagnosis (1) Gastroenteritis Priority: Primary Status: Acute Assessment and Plan: Suspected with nausea, vomiting and now loose stool. Symptoms resolved with supportive care/measures (IV fluids, clear liquid diet, PRN Zofran). Tolerating regular diet with no nausea vomiting or loose stool at time of discharge. (2) Dizziness Priority: Primary Status: Acute Assessment and Plan: in the setting of dehydration due to suspected gastroenteritis as noted above as well as orthostatic hypotension. Symptoms improved with IV fluids. Patient advised on removing/changing positions slowly. (3) CLAIRE (acute kidney injury) Priority: Primary Status: Acute Assessment and Plan: Cr 1.6; no known history of kidney disease. Suspect prerenal with excessive GI losses with nausea/vomiting. Renal function normalized with IV fluids. Commend repeat CMP with PCP within one week (4) CAD (coronary artery disease) Priority: Primary Status: Acute Assessment and Plan: Significant cardiac history including prior PA, multiple stents and CABG 2013 at [facility]. 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 03/2017 TTE with EF 55%, normal systolic function and bioprosthetic aortic valve well seated and appears to open well. Troponin peaked at 0.07 and trended down. No acute ST changes on EKG. Denied chest pain. 06/09/2017 TTE with EF 60%, no wall motion abnormalities. Suspect bump in troponin secondary to CLAIRE/demand ischemia. Cont home Plavix, BB, statin. Cardiology followed. Follow-up with primary bog worker outpatient. Qualifiers: Coronary Disease-Associated Artery/Lesion type: bypass graft, autologous artery Associated angina: without angina Qualified Code(s): I25.810 - Atherosclerosis of coronary artery bypass graft(s) without angina pectoris (5) Aortic valve replaced Priority: Primary Status: Acute Assessment and Plan: Aortic valve replacement with [employer] trifecta tissue valve 01/2014 at [facility]. 2017 TTE shows bioprosthetic valve well-positioned and functioning well. Hospital course: See assessment and plan for hospital course Discharge discussed with: patient (Seen and examined at bedside. Says he feels better and back to his normal self. Like to go home today. No chest pain or shortness of breath, no nausea vomiting or loose stool. No dizziness or lightheadedness.) - Time Spent with Patient Total time spent providing and/or coordinating discharge services: - Discharge Medications Prescriptions: Amlodipine Besylate 10 mg PO DAILY #30 tablet Metoprolol [Lopressor] 25 mg PO BID #60 tablet Home Medications: Clopidogrel [Plavix] 75 mg PO DAILY 06/07/17 [History] Escitalopram [Lexapro] 20 mg PO DAILY 06/07/17 [History] Hydrochlorothiazide [Microzide] 12.5 mg PO QAM 06/07/17 [History] Insulin DETEMIR [Levemir] 56 unit SQ QPM 06/07/17 [History] Lisinopril [Zestril] 20 mg PO BID 06/07/17 [History] Montelukast [Singulair] 10 mg PO DAILY 06/07/17 [History] Nitroglycerin [Nitrostat] 0.4 mg SL Q5M PRN 06/07/17 [History] Rosuvastatin [Crestor] 20 mg PO HS 06/07/17 [History] Amlodipine Besylate 10 mg PO DAILY #30 tablet 06/09/17 [Rx] Metoprolol [Lopressor] 25 mg PO BID #60 tablet 06/09/17 [Rx] Allergies/Adverse Reactions: 3 Allergy/AdvReac Type Severity Reaction Status Date / Time No Known Allergies Allergy Verified 06/07/17 14:16 Date of admission: 06/07/17 17:53 Primary care physician: PCP NONE Consults: 06/07/17 19:19 Consult to Physical Therapy [CONS] Routine Comment: Evaluate, develop and implement POC Reason for Consult: Weakness Does patient have active BEDREST order?: No Is patient medically & hemodynamically stable?: Yes Patient assessed for mobility or mobilized this visit?: Yes 06/08/17 13:56 Consult to Cardiology [CONS] Routine Comment: Consulting Provider: Cardiology Rea Reason for Consult: hx CAD, abnormal stress and elevated trop Call Completed: Yes Discharging clinician: Jo-Ann Little Anticipated date of discharge: 06/09/17 - Constitutional Vitals: Temp Pulse Resp BP Pulse Ox 98.5 F 67 18 171/78 95 06/09/17 11:19 06/09/17 11:19 06/09/17 11:19 06/09/17 11:19 06/09/17 11:19 General appearance: Present: A&O X 3, answers questions appropriately - Head Head exam: Present: atraumatic, normocephalic - Eye Eye exam: Present: PERRL, conjuntiva pink, sclera anicteric Pupils: Present: PERRL - Neck Neck exam general surgery: Present: supple, trachea midline. Absent: lymphadenopathy - Respiratory Respiratory exam: Present: CTAB. Absent: accessory muscle use, rales, rhonchi, wheezes - Cardiovascular Cardiovascular exam: Present: RRR, +S1, +S2. Absent: diastolic murmur, gallop, rubs, systolic murmur - GI/Abdominal GI/Abdominal exam: Present: normal bowel sounds, soft, no peritoneal signs. Absent: distended, tenderness - Extremities Exam Extremities exam: Present: warm, radial pulses palpable and symmetrical. Absent : calf tenderness, cyanotic, pedal edema - Neurological Exam Neurological exam: Present: CN II-XII intact, oriented X3, no focal deficits. Absent: pronater drift, facial droop, speech deficit - Skin Skin exam: Present: dry, intact - Patient Status Disposition: Home, Self-Care Condition: Good Overall status at discharge: patient is back to baseline - Discharge Instructions Instructions: Metoprolol (By mouth), Amlodipine (By mouth), Coronary Artery Disease (DC), Gastroenteritis (DC), Hypotension (DC) Follow Up With: Pasquale Vizcarra [Partnered Physician] - 06/17/17 11:00 am (You will recieve a packet in the mail containing sheets for you to fill out to bring to your appointment and also instructions on what other items to bring. Please fill out all information needed. ) NONE,PCP [Primary Care Provider] - Maverick Rosas [Family Provider] - - Diet and Activity Activity: increase activity as tolerated Diet: low fat, low cholesterol - VTE Deep Vein Thrombosis/Pulmonary Embolism Present on Admission: Yes
[2017-06-09] MEDS ORDERED: Insulin DETEMIR 100 UNIT/ML X5UNITS SQ SCH ×2 (17:15→18:00)
[2017-06-09] MEDS ORDERED: Perflutren Lipid Microsphere 1.3 ML in 0.9 % Sodium Chloride 8.7 ML IVP ONE (19:48)
[2017-06-09] MEDS ORDERED: Mag Hydrox/Al Hydrox/Simeth 30 ML UDC PO PRN (23:32)
[2017-06-10 05:17] LABS: Basophils % 0.3 %; Eosinophils # 0.1 K/mcL (0.0-0.6); Eosinophils % 1.1 %; Hematocrit 35.7 % (37.5-50.1); Hemoglobin 12.5 g/dL (12.9-16.9); Immature Granulocytes % 0.3 % (0-4); Lymphocytes # 1.6 K/mcL (0.6-4.6); Lymphocytes % 24.5 %; Mean Corpuscular Hemoglobin 27.2 pg (28.0-33.3); Mean Corpuscular Volume 77.6 fL (83.0-100.0); Mean Platelet Volume 11.6 fL (9.4-12.4); Monocytes # 0.9 K/mcL (0.0-1.3); Monocytes % 13.5 %; Neutrophils # 3.8 K/mcL (1.6-8.9); Platelet Count 125 K/mcL (140-400); Red Cell Distribution Width 15.3 % (11.5-14.5); Segmented Neutrophils % 60.3 %
[2017-06-10] MEDS: *HR* Heparin 5,000 UNIT/ML VIAL SQ SCH (06:03)
[2017-06-10 06:41] LABS: BUN/Creatinine Ratio 16 (6-26); Blood Urea Nitrogen 16 mg/dL (8-23); Calcium 8.9 mg/dL (8.6-10.3); Carbon Dioxide 25 mEq/L (23-29); Chloride 105 mEq/L (98-107); Glucose 66 mg/dL (70-105); Osmolality,Calculated 281 (280-300); Potassium 3.9 mEq/L (3.5-5.1); Sodium 136 mEq/L (136-145); eGFR For African Americans > 60 (> 60); eGFR For Non-African Americans > 60 (> 60)
[2017-06-10 08:32] VITALS: BP 167/76
[2017-06-10 08:56] LABS: Estimated Average Glucose 197 mg/dl; Hemoglobin A1C 8.5 %
[2017-06-10] MEDS: Aspirin 81 MG TAB.CHEW PO SCH (09:21)
[2017-06-10] MEDS: Isosorbide MONOnitrate (24 HR) 60 MG TAB.ER.24H PO SCH (09:21)
[2017-06-10] MEDS: Lisinopril 20 MG TABLET PO SCH (09:21)
[2017-06-10] MEDS: hydroCHLOROthiazide 25 MG TABLET PO SCH (09:21)
[2017-06-10] MEDS: Insulin LISPRO 300 UNITS/3 ML VIAL SQ SCH (09:21)
[2017-06-10] MEDS: amLODIPine 5 MG TABLET PO SCH (09:21)
--- NOTE | 2017-06-10 10:23 | Event Note ---
Date of Encounter: 06/10/17 Time of Encounter: 10:22 - Cardiology Event Note Limited echo resulted--EF preserved, 60-65%, normal wall motion. Cardiology signing off. Reconsult PRN. Will coordinate outpt follow-up in 3-4 weeks.
== END 2017-06-10 11:42 | disposition home or self-care (01) ==
LOC: EMEROO 14:02 → 3BNU 14:02
PROVIDERS: ADMIT Internal Medicine Hematology & Oncology; ATTEND Internal Medicine Hematology & Oncology